=== PATIENT | female | born 1970 | race Caucasian/White ===

== ENCOUNTER 2019-12-01 20:55 | Emergency (ER) | payer OTHER ==
[~2019-12-01] VITALS: Ht 167.6 cm; Wt 97.7 kg
[2019-12-01 23:02] LABS: HEMATOCRIT 38.4 % (37.0-47.0); HEMOGLOBIN 12.9 g/dl (12.0-16.0); IMMATURE GRANULOCYTES 0.6 % (0.0-5.0); MEAN CELL VOLUME 85.1 fL CALC (80.0-100.0); MEAN CORPUSCULAR HGB 28.6 pG CALC (26.0-32.0); MEAN CORPUSCULAR HGB CONC 33.6 g/dL CAL (32.0-36.0); NEUT# 3.01 thou/uL (2.00-7.15); RED BLOOD COUNT 4.51 mill/uL (4.20-5.60); RED CELL DISTRI WIDTH 13.2 % (11.5-15.5)
[2019-12-01 23:22] LABS: ALBUMIN 3.6 g/dL (3.2-5.0); ALKALINE PHOSPHATASE 86 u/l (38-126); ANION GAP 9 (6-22 (CALC)); BUN 13 mg/dL (7-17); BUN/CREATININE RATIO 19 (12-20 (CALC)); CARBON DIOXIDE 31 mmol/l (22-30); CHLORIDE 99 mmol/l (95-108); CREATININE 0.7 mg/dL (0.5-1.0); GFR > 60 ML/MIN (>=60 (CALC)); GFR FOR AFR.AMER. > 60 ML/MIN (>=60 (CALC)); POTASSIUM 3.5 mmol/l (3.5-5.1); SGOT/AST 25 u/l (14-36); SODIUM 135 mmol/l (137-146)
[2019-12-01 23:31] LABS: BILIRUBIN, TOTAL 0.4 mg/dL (0.0-1.4)
[2019-12-01 23:33] LABS: MYOGLOBIN 18 ng/mL (0 - 62)
[2019-12-01 23:40] LABS: PROTHROMBIN TIME 10.3 SECONDS (9.0-12.5)
[2019-12-02 02:04] VITALS: BP 129/69
== END 2019-12-02 02:04 | disposition home or self-care (01) | DRG 313 ==
LOC: ED 20:55
PROVIDERS: Emergency Medicine
DX: R07.89 Other chest pain (principal); R06.02 Shortness of breath; J45.909 Unspecified asthma, uncomplicated